=== PATIENT | male | born 1955 | race Caucasian/White ===

== ENCOUNTER → 2020-05-15 | Outpatient (REF) | payer OTHER | LOC: M LAB REF 12:42 | PROVIDERS: ATTEND Internal Medicine | DX: G60.9 Hereditary and idiopathic neuropathy, unspecified (principal) ==

== ENCOUNTER → 2020-07-02 | Outpatient (CLI) | payer OTHER ==
--- NOTE | 2020-07-02 22:55 | REP ---
INDICATION: PVD COMPARISON: None. TECHNIQUE: Real time wiley scale and color Doppler evaluation of the bilateral lower extremity arterial vasculature using linear high frequency transducer. FINDINGS: Wiley scale and color images demonstrate mild bilateral atheromatous plaquing. Arterial wave patterns are noted with primarily triphasic wave patterns. There appears to be focal 2.2:1 stenosis in the left mid to distal superficial femoral vein. No further areas of stenosis or occlusion are identified. Right DONALD equals 1.1 Left DONALD equals 1.0 Peak systolic velocities (cm/sec) Common femoral artery: Right 120; Left 114 Profunda femoris: Right 131; Left 105 SFA (proximal): Right 147; Left 101 SFA (mid): Right 125; Left 97.2 SFA (distal): Right 128; Left 218 Popliteal artery: Right 91; Left 101 SID (prox.): Right 92; Left 87 Tibioperoneal trunk: Right 81; Left 68 [employer] (prox.): Right 70; Left 48 [employer] (distal): Right 94; Left 90 SID (distal): Right 99; Left 77 IMPRESSION: 1. Mild atheromatous plaquing noted. 2. Focal 2.2:1 stenosis through the left mid to distal superficial femoral artery. <Electronically signed by Jake Hughes > 07/02/20 [id number]
== END ==
LOC: M RAD 12:58
PROVIDERS: ATTEND Internal Medicine
DX: I73.9 Peripheral vascular disease, unspecified (principal); I70.212 Atherosclerosis of native arteries of extremities with intermittent claudication, left leg

== ENCOUNTER → 2020-09-20 | Outpatient (CLI) | payer OTHER ==
--- NOTE | 2020-09-20 08:41 | REP ---
INDICATION: NICOTINE DEPEND COMPARISON: None. TECHNIQUE: Axial noncontrast images from the thoracic inlet to the upper abdomen using low-dose lung screening technique (LDCT). FINDINGS: 9 mm calcified granuloma in the right upper lobe and calcified mediastinal and subcarinal lymph nodes consistent with prior granulomatous disease. 7 mm noncalcified nodule in the right upper lobe (series 201; image 54) likely related to prior granulomatous disease although further investigation may be warranted. Remainder of lung mcmanus are clear and without acute consolidation, further suspicious nodule or mass lesion. No effusion. No pneumothorax. IMPRESSION: Lung-RADS category 3. 7 mm noncalcified nodule in the right upper lobe likely related to prior granulomatous disease. However, management recommendations include 6 month follow-up examination. <Electronically signed by Jake Hughes > 09/20/20 0803
== END ==
LOC: M RAD 08:11
PROVIDERS: ATTEND Internal Medicine
DX: Z12.2 Encounter for screening for malignant neoplasm of respiratory organs (principal); F17.210 Nicotine dependence, cigarettes, uncomplicated; R91.1 Solitary pulmonary nodule

== ENCOUNTER 2020-10-04 10:44 | Emergency (ER) | payer OTHER ==
[~2020-10-04] VITALS: Ht 185.4 cm; Wt 86.8 kg
--- NOTE | 2020-10-04 12:09 | REP ---
INDICATION: trauma. COMPARISON: None. TECHNIQUE: AP view pelvis, AP and frogleg views left hip. FINDINGS: There is no evidence of acute fracture, dislocation or intrinsic bone disease. There is mild degenerative change at the hip joints and sacroiliac joints. Phleboliths are seen in the pelvis. IMPRESSION: No acute fracture or dislocation. <Electronically signed by Parvez Wiley > 10/04/20 1721
[2020-10-04] MEDS ORDERED: PERCOCET 5MG/325MG TAB PO ONE (12:10)
--- NOTE | 2020-10-04 12:17 | REP ---
INDICATION: trauma. COMPARISON: None. TECHNIQUE: Six views bilateral ribs, frontal view chest. FINDINGS: There is a displaced fracture of the left posterolateral 5th rib and lateral left 6th rib. There is nondisplaced fracture of the lateral left 7th rib. No right rib fracture is seen. No bone lesion is seen. There are bibasilar atelectatic changes in the lungs with no evidence of pneumothorax or significant pleural effusion. The heart and mediastinum are unremarkable. IMPRESSION: Fractures left 5th through 7th ribs as discussed above. <Electronically signed by Parvez Wiley > 10/04/20 [id number]
[2020-10-04 13:00] VITALS: BP 132/82
--- NOTE | 2020-10-04 13:11 | REP ---
INDICATION: trauma inability to bear weight xray neg. COMPARISON: None. TECHNIQUE: Standard helical technique using 3 mm increments and reconstructed in both sagittal and coronal planes FINDINGS: There are fractures of the superior pubic ramus and there is a fracture of the inferior pubic ramus. The superior pubic ramus fracture has an intra-articular component with the anterior medial base of the acetabulum. The hip joint shows no dislocation or subluxation. There is slight femoral head marginal osteophytosis and there are incidental synovial herniation pits involving the femoral head and neck region. There is no right hip fracture. Degenerative changes seen involving the imaged portions findings sacroiliac joints. IMPRESSION: Fractures and other findings as described above. <Electronically signed by Efraín Hahn > 10/04/20 [id number]
[2020-10-04] MEDS ORDERED: PERC5TAB12 PO (15:17)
[2020-10-04] MEDS ORDERED: rolling walker (15:23)
== END 2020-10-04 15:34 | disposition home or self-care (01) ==
LOC: EDBD 10:44 → M ED 10:44
DX: S32.402A Unspecified fracture of left acetabulum, initial encounter for closed fracture (principal); S32.89XA Fracture of other parts of pelvis, initial encounter for closed fracture; S22.42XA Multiple fractures of ribs, left side, initial encounter for closed fracture; W11.XXXA Fall on and from ladder, initial encounter; Y92.009 Unspecified place in unspecified non-institutional (private) residence as the place of occurrence of the external cause; Y93.9 Activity, unspecified; Y99.9 Unspecified external cause status; M25.752 Osteophyte, left hip; M24.852 Other specific joint derangements of left hip, not elsewhere classified; M53.3 Sacrococcygeal disorders, not elsewhere classified; J98.11 Atelectasis

== ENCOUNTER → 2020-10-11 | Outpatient (CLI) | payer OTHER ==
[~2020-10-11] MED LIST: PERC5TAB12 PO; rolling walker
--- NOTE | 2020-10-11 12:51 | REP ---
INDICATION: UNSPECIFIED FRACTURE OF LEFT ACETABULUM. COMPARISON: AP pelvis of 10/04/[address] of the left hip same day TECHNIQUE: AP pelvis FINDINGS: The AP pelvis today now shows a subtle left acetabular fracture and superior pubic ramus fracture representing a change from the prior plain film of 10/04/2020. Today's exam shows a left inferior pubic ramus irregularity unchanged from the prior exam but only known as a fracture from reviewing the prior CT. The irregularity seen on today's plain film actually represents chronic ischial tuberosity changes and not the actual fracture site which is only seen on CT. There is no change in appearance of the hip joints. IMPRESSION: Left erlinda pelvic fractures as described above. There is no plain radiographic evidence of an additional fracture. One hundred port <Electronically signed by Efraín Hahn > 10/11/20 [id number]
--- NOTE | 2020-10-11 12:53 | REP ---
INDICATION: UNSPECIFIED FRACTURE OF LEFT ACETABULUM. COMPARISON: 10/04/2020 TECHNIQUE: AP and frog-lateral views FINDINGS: Today's examination shows a subtle nondisplaced fracture of the acetabular base not present on the prior exam. There is irregularity of the ischial tuberosity which represents chronic change. Only by previous CT of 10/04/2020 is an inferior pubic ramus fracture identifiable. The hip joint space is unchanged. There is mild asymmetric hip joint space narrowing consistent with chronic change. IMPRESSION: As above <Electronically signed by Efraín Hahn > 10/11/20 [id number]
== END ==
LOC: M SOG 11:40
PROVIDERS: ATTEND Orthopaedic Surgery
DX: S32.402S Unspecified fracture of left acetabulum, sequela (principal); X58.XXXS Exposure to other specified factors, sequela; Y92.9 Unspecified place or not applicable

== ENCOUNTER → 2020-11-08 | Outpatient (CLI) | payer OTHER ==
--- NOTE | 2020-11-08 09:47 | REP ---
INDICATION: FX OF LEFT PUBIS WITH ROUTINE HEALING. COMPARISON: 10/11/2020 as well as other prior exams. TECHNIQUE: Four AP and oblique views of the pelvis are performed. FINDINGS: Left nondisplaced superior and inferior pubic rami fractures are again noted. The superior pubic ramus fracture involves the medial acetabulum. Alignment is unchanged. There are mild degenerative changes of the hips. There is mild sclerosis at the sacroiliac joints bilaterally. IMPRESSION: Stable exam. <Electronically signed by Parvez Wiley > 11/08/20 0908
== END ==
LOC: M SOG 09:06
PROVIDERS: ATTEND Orthopaedic Surgery
DX: S32.502D Unspecified fracture of left pubis, subsequent encounter for fracture with routine healing (principal); X58.XXXD Exposure to other specified factors, subsequent encounter; Y92.9 Unspecified place or not applicable; M16.0 Bilateral primary osteoarthritis of hip

== ENCOUNTER → 2020-12-19 | Outpatient (REF) | payer OTHER | LOC: M LAB REF 14:02 | PROVIDERS: ATTEND Physician Assistant | DX: D18.01 Hemangioma of skin and subcutaneous tissue (principal); L57.8 Other skin changes due to chronic exposure to nonionizing radiation; L81.4 Other melanin hyperpigmentation ==

== ENCOUNTER → 2021-02-19 | Outpatient (REF) | payer OTHER | LOC: M LAB REF 19:21 | PROVIDERS: ATTEND Dermatology | DX: L90.5 Scar conditions and fibrosis of skin (principal) ==

== ENCOUNTER → 2021-04-26 | Outpatient (REF) | payer OTHER | LOC: M LAB REF 16:39 | PROVIDERS: ATTEND Internal Medicine | DX: R19.4 Change in bowel habit (principal) ==

== ENCOUNTER → 2021-11-04 | Outpatient (CLI) | payer OTHER | LOC: M RAD 09:15 | PROVIDERS: ATTEND Internal Medicine | DX: R91.1 Solitary pulmonary nodule (principal); I70.0 Atherosclerosis of aorta; N28.1 Cyst of kidney, acquired; K44.9 Diaphragmatic hernia without obstruction or gangrene; Z87.81 Personal history of (healed) traumatic fracture; K80.20 Calculus of gallbladder without cholecystitis without obstruction; E27.9 Disorder of adrenal gland, unspecified ==

== ENCOUNTER → 2023-07-07 | Outpatient (CLI) | payer MEDICARE, OTHER ==
[~2023-07-07] MED LIST changes: +ISOVUE-370 76% 100ML VIAL As Ordered ONE
== END ==
LOC: M RAD 07:32
PROVIDERS: ATTEND Internal Medicine
DX: I73.9 Peripheral vascular disease, unspecified (principal); I77.4 Celiac artery compression syndrome; K76.0 Fatty (change of) liver, not elsewhere classified; N28.1 Cyst of kidney, acquired; K80.00 Calculus of gallbladder with acute cholecystitis without obstruction
CPT/HCPCS: 75635; Q9967

== ENCOUNTER → 2023-07-08 | Outpatient (CLI) | payer MEDICARE, OTHER ==
[~2023-07-08] MED LIST changes: -ISOVUE-370 76% 100ML VIAL As Ordered ONE
== END ==
LOC: M RAD 09:18
PROVIDERS: ATTEND Internal Medicine
DX: I87.2 Venous insufficiency (chronic) (peripheral) (principal); I73.9 Peripheral vascular disease, unspecified

== ENCOUNTER → 2024-01-14 | Outpatient (CLI) | payer OTHER | LOC: M WHC 13:03 | PROVIDERS: ATTEND Internal Medicine | DX: R42 Dizziness and giddiness (principal); I73.9 Peripheral vascular disease, unspecified; I65.23 Occlusion and stenosis of bilateral carotid arteries ==

== ENCOUNTER 2024-01-27 04:09 | Emergency (ER) | payer OTHER ==
[~2024-01-27] VITALS: Ht 185.4 cm; Wt 83.9 kg
[2024-01-27 06:48] LABS: HEMATOCRIT 40.3 % (42.0-52.0); HEMOGLOBIN 13.6 g/dl (13.5-17.5); MEAN CORPUSCULAR HEMOGLOBIN 29.8 pg (27.0-33.0); MEAN CORPUSCULAR HGB CONC 33.7 g/dl (32.0-36.5); MEAN CORPUSCULAR VOLUME 88.2 fl (80.0-96.0); PLATELET COUNT, AUTOMATED 176 10^3/uL (150-450); RED BLOOD COUNT 4.57 10^6/uL (4.30-6.10); WHITE BLOOD COUNT 7.5 10^3/uL (4.0-10.0)
[2024-01-27] MEDS ORDERED: ATOR1TAB21 PO (06:48)
[2024-01-27 07:00] LABS: INR 1.06; PROTHROMBIN TIME 13.5 SECONDS (12.5-14.5)
[2024-01-27] MEDS ORDERED: GABA-1172 (07:07)
[2024-01-27] MEDS ORDERED: ISOS1TAB35 (07:07)
[2024-01-27 07:15] LABS: LIPASE 42 U/L (12-53)
[2024-01-27 07:17] LABS: ALBUMIN 3.9 G/DL (3.2-5.2); ALKALINE PHOSPHATASE 90 U/L (46-116); ALT/SGPT 43 U/L (7.0-40); AST/SGOT 18 U/L (<34); BILIRUBIN,DIRECT 0.3 MG/DL (<0.4); BLOOD UREA NITROGEN 14 MG/DL (9-23); CALCIUM LEVEL 9.3 MG/DL (8.3-10.6); CARBON DIOXIDE LEVEL 29 MMOL/L (20-31); CHLORIDE LEVEL 109 MMOL/L (98-107); CREATININE FOR GFR 0.87 MG/DL (0.70-1.30); GLOMERULAR FILTRATION RATE > 60.0 (>49); GLUCOSE, FASTING 106 MG/DL (74-106); POTASSIUM SERUM 4.2 MMOL/L (3.5-5.1); SODIUM LEVEL 140 MMOL/L (136-145); TOTAL PROTEIN 6.9 G/DL (5.7-8.2)
[2024-01-27] MEDS ORDERED: ISOVUE-370 76% 100ML VIAL As Ordered ONE (07:28)
[2024-01-27 09:10] VITALS: BP 136/69; TEMP 97.2; O2SAT 100
== END 2024-01-27 09:16 | disposition home or self-care (01) ==
LOC: M ED 04:09
DX: K62.5 Hemorrhage of anus and rectum (principal); I10 Essential (primary) hypertension; I25.119 Atherosclerotic heart disease of native coronary artery with unspecified angina pectoris; F10.10 Alcohol abuse, uncomplicated; Z87.891 Personal history of nicotine dependence; Z79.899 Other long term (current) drug therapy
CPT/HCPCS: 36415; 74174; 80048; 80076; 83690; 85027; 85610; 86850; 86900; 86901; 99284; Q9967

== ENCOUNTER → 2024-02-01 | Outpatient (REF) | payer OTHER ==
[~2024-02-01] MED LIST changes: +ATOR1TAB21 PO; +GABA-1172; +ISOS1TAB35
[2024-02-01 18:21] LABS: FERRITIN 102.6 NG/ML (10.5-307.3)
== END ==
LOC: M LAB REF 16:14
PROVIDERS: ATTEND Nurse Practitioner Family
DX: R53.83 Other fatigue (principal)

== ENCOUNTER → 2024-02-10 | Outpatient (CLI) | payer OTHER | LOC: M RAD 08:21 | PROVIDERS: ATTEND Internal Medicine | DX: Z12.2 Encounter for screening for malignant neoplasm of respiratory organs (principal); F17.210 Nicotine dependence, cigarettes, uncomplicated; J84.10 Pulmonary fibrosis, unspecified; R91.1 Solitary pulmonary nodule; K80.20 Calculus of gallbladder without cholecystitis without obstruction ==

== ENCOUNTER 2024-03-16 06:51 | Day surgery (SDC) | payer OTHER ==
[~2024-03-16] VITALS: Ht 170.2 cm; Wt 85.3 kg
[~2024-03-16 06:51] MED LIST changes: -GABA-1172; +GABA-1172 PO; +ISOS1TAB35 PO
[2024-03-16] MEDS ORDERED: LIDOCAINE 2% 100MG/5ML SDV (FOR ANES.) As Ordered ONE (07:02)
[2024-03-16] MEDS ORDERED: propofoL 200 MG/20 ML VIAL As Ordered ONE (07:02)
[2024-03-16 08:40] VITALS: BP 138/90; O2SAT 99
== END 2024-03-16 08:39 | disposition home or self-care (01) ==
LOC: M OPP 06:51
PROVIDERS: ATTEND Surgery
DX: D12.8 Benign neoplasm of rectum (principal); D12.5 Benign neoplasm of sigmoid colon; D12.4 Benign neoplasm of descending colon; D12.2 Benign neoplasm of ascending colon; D12.0 Benign neoplasm of cecum; D12.7 Benign neoplasm of rectosigmoid junction; E78.00 Pure hypercholesterolemia, unspecified; Z79.899 Other long term (current) drug therapy; Z87.891 Personal history of nicotine dependence

== ENCOUNTER 2024-11-24 07:00 | Day surgery (SDC) | payer OTHER ==
[~2024-11-24] VITALS: Ht 180.3 cm; Wt 82.4 kg
[~2024-11-24 07:00] MED LIST changes: +DOXY100C3 PO
[2024-11-24 09:22] VITALS: BP 106/67; O2SAT 96
== END 2024-11-24 09:27 | disposition home or self-care (01) ==
LOC: M OPP 07:00
PROVIDERS: ATTEND Surgery
DX: D12.3 Benign neoplasm of transverse colon (principal); D12.4 Benign neoplasm of descending colon; D12.5 Benign neoplasm of sigmoid colon; D12.7 Benign neoplasm of rectosigmoid junction; K57.30 Diverticulosis of large intestine without perforation or abscess without bleeding; Z79.899 Other long term (current) drug therapy; Z86.0100 Personal history of colon polyps, unspecified

== ENCOUNTER → 2025-02-10 | Outpatient (CLI) | payer OTHER | LOC: M RAD 09:01 | PROVIDERS: ATTEND Internal Medicine | DX: F17.210 Nicotine dependence, cigarettes, uncomplicated (principal) ==

== ENCOUNTER → 2025-03-03 | Outpatient (CLI) | payer OTHER ==
[~2025-03-03] MED LIST changes: +ISOVUE-370 76% 100 ML VIAL As Ordered ONE
== END ==
LOC: M RAD 13:03
PROVIDERS: ATTEND Internal Medicine
DX: R91.1 Solitary pulmonary nodule (principal)
CPT/HCPCS: 71260; 82565; Q9967